=== PATIENT | female | born 1955 | race Hispanic/Latino ===

== ENCOUNTER 2024-11-20 18:21 | Emergency (ER) | payer OTHER, MEDICAID ==
--- NOTE | 2024-11-20 18:49 | ERN ---
General Chief Complaint: Weakness Stated Complaint: WEAKNESS Time Seen by MD: 18:34 Source: patient, family History of Present Illness Initial Comments In his is a 69-year-old female coming in complaining of generalized body weakness for one day. She states that she is a diabetic and has been feeling weak and had nauseousness x1 . No fever no chills Allergies: Coded Allergies: No Known Drug Allergies (Unverified Allergy, Unknown, 11/20/24) Past Medical History Past Medical History: Diabetes-Type II, High Cholesterol Past Surgical History: Other Surgical History Other: intestine sx ROS Dictation CONSTITUTIONAL: No chills, no fever, weakness, no diaphoresis, malaise. HEAD/FACE: No signs of trauma. EENT: No eye pain, no blurred vision, no tearing, no double vision, no ear pain, no ear discharge, no nose pain, no nasal congestion, no throat pain, no throat swelling, no mouth pain. RESPIRATORY: No cough, no orthopnea, no SOB, no stridor, no wheezing. CARDIOVASCULAR: No chest pain, no edema, no palpitations, no syncope. GASTROINTESTINAL/ABDOMINAL: No abdominal pain, no constipation, no diarrhea, no nausea, no vomiting. GENITOURINARY: No abnormal discharge, no dysuria, no frequent urination, no hematuria. No complaints of pain in the genitals. MUSCULOSKELETAL: No back pain, no gout, no joint pain, no joint swelling, no muscle pain, no muscle stiffness, no neck pain. INTEGUMENTARY: No change in color, no change in hair/nails, no dryness, no lesion, no lumps, no rash. NEUROLOGICAL/PSYCH: No anxiety, not depressed, no emotional problem, no headache, no numbness, no pre-existing deficit, no history of seizures, no trem ors, no weakness. HEMATOLOGIC/LYMPHATIC: Not anemic, no history of blood clots, no apparent bleeding, no bruising, glands not swollen. All Systems Negative, Except as Noted. Physical Exam Physical Exam Dictation VITAL SIGNS: Reviewed. GENERAL APPEARANCE: Alert, oriented x3, no acute distress, obese. HEAD AND FACE: Non-traumatic. EYES: PERRL, pink conjunctivas, eyelid no trauma, anterior chamber clear. EARS: Pinnas intact and no signs of trauma or erythema. Ear canals clear and no discharge. TMs no erythema. NOSE: No discharge, no bleeding. OROPHARYNX: Mouth normal, teeth no caries, tongue pink. Pharynx clear, no erythema. Tonsils no exudates, no abscesses noted. Mucous membrane moist. NECK: Supple, non-tender, no thyromegaly, no masses, no JVD, no bruits. BREAST: Deferred. CHEST: No tenderness, no crepitus, no paradoxical movement, no retractions. LUNGS: Clear, well-ventilated, symmetric, no rales, no wheezing, no rhonchi, no stridor, good breath sounds bilaterally. HEART: Regular rate, regular rhythm, no murmur, no gallops. VASCULAR: No peripheral edema. ABDOMEN: Soft, positive bowel sounds, nondistended, no guarding, nontender, no rebound, no masses no hepatomegaly, no splenomegaly, no Medina's sign, no hernias. RECTAL: Deferred. GENITAL: Deferred. NEUROLOGICAL: Normal speech, gross motor function intact, gross sensory f unction intact. MUSCULOSKELETAL: Neck nontender, full range of motion, back nontender, full range of motion. EXTREMITIES: Nontender, full range of motion. SKIN: Color pink, dry, no turgor, no rash, no lacerations, no abrasions, no contusions. LYMPHATICS: Deferred. Results Laboratory and Microbiology Lab and Micro Result Laboratory Tests Test 11/20/24 19:36 11/20/24 23:40 White Blood Count 6.9 K/uL (4.8-10.8) Red Blood Count 4.13 MIL/uL (4.00-5.50) Hemoglobin 12.7 g/dL (12.0-16.0) Hematocrit 37.8 % (36-48) Mean Corpuscular Volume 91.5 fL (79-99) Mean Corpuscular Hemoglobin 30.8 pg (27.0-33.0) Mean Corpuscular Hemoglobin Concent 33.6 g/dL (32.0-36.0) Red Cell Distribution Width 13.4 % (11.0-15.5) Platelet Count 184 K/uL (130-400) Mean Platelet Volume 10.9 fL (7.5-10.5) H Immature Granulocyte % (Auto) 0.3 % (0-1) Neutrophils (%) (Auto) 64.2 % (40.0-77.0) Lymphocytes (%) (Auto) 26.6 % (21.0-51.0) Monocytes (%) (Auto) 7.4 % (3.0-13.0) Eosinophils (%) (Auto) 1.2 % (0.0-8.0) Basophils (%) (Auto) 0.3 % (0.0-5.0) Neutrophils # (Auto) 4.4 K/uL (1.8-7.7) Lymphocytes # (Auto) 1.8 K/uL (1.0-4.8) Monocytes # (Auto) 0.5 K/uL (0.1-1.0) Eosinophils # (Auto) 0.08 K/uL (0.00-0.70) Basophils # (Auto) 0.02 K/uL (0.00-0.20) Absolute Immature Granulocyte (auto 0.02 K/uL (0-1) Nucleated Red Blood Cells 0.0 % (0.0-0.19) Sodium Level 140 mmol/L (136-145) Potassium Level 3.4 mmol/L (3.5-5.1) L Chloride Level 103 mmol/L (101-111) Carbon Dioxide Level 21 mmol/L (21-32) Blood Urea Nitrogen 16 mg/dL (7-18) Creatinine 0.8 mg/dL (0.5-1.0) Glomerular Filtration Rate Calc 79 mL/min (>90) Random Glucose 180 mg/dL (70-105) H Total Calcium 9.4 mg/dL (8.5-10.1) Total Creatine Kinase 57 U/L (21-232) Troponin I High Sensitivity 11 ng/L (4-50) Influenza Type A Antigen Negative For Type A Influenza Type B Antigen Negative For Type B SARS-CoV-2 Antigen (Rapid) PRESUMPTIVE NEGATIVE Labs Reviewed?: Yes EKG/XRAY/US/CT/MRI X-RAY Comment REASON: weakness ORDERING PHYSICIAN: LAMBERT DAWN MD PROCEDURE: CXR1VW - CHEST 1VW EXAM: CR Chest, 1 View. CLINICAL HISTORY: weakness COMPARISON: None provided. FINDINGS: LUNGS: There is no mass, infiltrate, or acute pulmonary abnormality. PLEURAL SPACES: No evidence of pleural effusion or pneumothorax. MEDIASTINUM: The cardiomediastinal silhouette is within normal limits. BONES: No acute osseous abnormality. IMPRESSION: No acute cardiopulmonary pathology is evident. /[place] DICTATED BY: ALEX ARSHAD MD DATE: 11/20/242211 ELECTRONICALLY SIGNED BY: ALEX ARSHAD MD DATE: 11/20/242211 MDM Differential diagnosis:, weakness, autonomic dysfunction related to diabetes, dehydration, viral syndrome, anemia Rationale: Tests considered and ordered secondary to shared decision making include: Previous outside records reviewed: Old ER visits. Risk of complication and/or morbidity or mortality of patient management: None Medications-Per medication reconciliation Need for hospitalization: Patient does not meet criteria for hospitalization. Need for emergency major/minor surgery: No There are no social concerns with this patient. Prescription drug management Prescriptions will include symptomatic care Patient's prior external medical records from other ER visits were reviewed by me as indicated. Prior testing and results from previous visits were reviewed. Prior tests were taken into account with medical decision making and resource utilization, independent historian/historians were used to obtain complete medical history. I independently interpreted the test that were performed, results were reviewed by me and considered findings on radiology if ordered. Medical management and examination interpretation discussions were had by me with other qualified healthcare professionals as indicated for the patient's care. 7:00 p.m. patient was signed out to me This is a very pleasant 69-year-old female who presented to the emergency room stating that she is a diabetic and she has felt weakness and fatigue for 1 day. She denied any fever chills or rigors. No nausea vomitings diarrhea. No vaginal bleeding or GI bleeding. No travel and heat. No chest pain pressure PND orthopnea. No shortness of breath. Recent surgeries. Although patient was initially a little tachycardic heart rates of 120 by the time I re-evaluated the patient Temperature 98.8 pulse 82 respirations 18 blood pressure 141/73 with a pulse oximetry of 98% on room air 9:00 p.m. labs reviewed CBC is with a normal limits BNP 7 showed a potassium of 3.4. Troponins are negative. Chest x-ray is unremarkable for any acute infiltrate. Was an inordinate delay and patient waiting in lobby due to lack of available space in the ER as it was extremely busy Gentle hydration was done and potassium repletion was done. To complete the workup I also requested flu and COVID swabs which came back negative. Patient wants to follow up with her primary care physician for further workup and she will be discharged to home. I updated her and her on all the basic tests that we did here today, I also considered possible autonomic dysfunction related to diabetes which can cause fatigue and slight tachycardia ED Course Orders Procedure Category Date Status Time Cbc With Differential LAB 11/20/24 Complete 18:49 Chest 1vw RAD 11/20/24 Resulted 18:49 12 Lead Ekg Tracing- EKG 11/20/24 Complete Technical 18:49 0.9%Nacl 1000ml (Ns PHA 11/20/24 Complete 1000ml) 19:00 Creatine Kinase, Total LAB 11/20/24 Complete 18:49 Troponin I High LAB 11/20/24 Complete Sensitivity 18:49 Urinalysis Profile LAB 11/20/24 Logged 18:49 Basic Metabolic Panel LAB 11/20/24 Complete 18:49 Influenza Type A & B, LAB 11/20/24 Complete Rapid 23:36 Covid19 (Sars Antigen LAB 11/20/24 Complete Rapid) 23:36 Current Medications Medications (Trade) Dose Ordered Sig/King Route PRN Reason Start Time Stop Time Status Last Admin Dose Admin Sodium Chloride 1,000 ml @ 0 mls/hr ONCE ONCE IV 11/20/24 19:00 11/20/24 19:01 DC 11/20/24 23:33 Vital Signs Date Time Temp Pulse Resp B/P (MAP) Pulse Ox O2 Delivery O2 Flow Rate FiO2 11/21/24 01:08 98.8 82 18 141/73 98 Room Air* 0 21 11/20/24 23:34 98.8 85 18 178/89 98 Room Air* 0 21 11/20/24 18:26 97.9 120 16 152/79 99 Room Air* 0 21 11/20/24 18:24 97.9 120 16 152/79 99 Room Air 0 DX & DISP Disposition: Discharge Decision to Admit Time: 00:24 Departure Impression: Primary Impression: Weakness Additional Impressions: Fatigue, Diabetes mellitus, Autonomic dysfunction with type 2 diabetes mellitus Condition: Stable Additional Instructions: Patient and the caregiver have been informed of all the diagnostic tests and the imaging conducted during the today's visit to the emergency room and has verbalized understanding of the results I have personally reviewed and interpreted all diagnostic exams performed here in the ER today as well as the vital signs documented by the nursing staff. The patient is now being discharged to home and should follow up with the primary care physician or the specialist as directed by the ER staff. I updated the patient and spouse that it is unclear as to reason for her weakness and fatigue. I instructed her to follow up with her primary care physician to get further blood work including B12 folate thyroid levels. LAMBERT DAWN MD Nov 20, 2024 18:49 GRACIE AGUILAR MD Nov 20, 2024 21:21
--- NOTE | 2024-11-20 18:57 | EKG ---
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
[2024-11-20 20:01] LABS: IMMATURE GRANULOCYTE ABSOLUTE 0.02 K/uL (0-1); NUCLEATED RED BLOOD CELLS 0.0 % (0.0-0.19); PLATELET COUNT (AUTO) 184 K/uL (130-400); RED BLOOD CELL COUNT(AUTO) 4.13 MIL/uL (4.00-5.50); RED CELL DISTRIBUTION WIDTH 13.4 % (11.0-15.5); WHITE BLOOD COUNT (AUTO) 6.9 K/uL (4.8-10.8)
[2024-11-20 20:20] LABS: CREATININE 0.8 mg/dL (0.5-1.0); GLOMERULAR FILTR. RATE CALC 79.0 mL/min (>90); GLUCOSE,RANDOM 180.0 mg/dL (70-105); SODIUM SERUM 140.0 mmol/L (136-145); UREA NITROGEN, BLOOD 16.0 mg/dL (7-18)
[2024-11-20 20:29] LABS: CREATINE KINASE, TOTAL 57.0 U/L (21-232)
--- NOTE | 2024-11-20 21:13 | HMCIMG ---
EXAM: CR Chest, 1 View. CLINICAL HISTORY: weakness COMPARISON: None provided. FINDINGS: LUNGS: There is no mass, infiltrate, or acute pulmonary abnormality. PLEURAL SPACES: No evidence of pleural effusion or pneumothorax. MEDIASTINUM: The cardiomediastinal silhouette is within normal limits. BONES: No acute osseous abnormality. IMPRESSION: No acute cardiopulmonary pathology is evident. /[place]
--- NOTE | 2024-11-20 23:20 | NUR ---
ASSUMED PT CARE
--- NOTE | 2024-11-20 23:20 | NUR ---
UA CUP GIVEN
[2024-11-20] MEDS: 0.9%NACL 1000ML 1,000 ML IV ONE (23:33)
[2024-11-21 00:15] LABS: COVID19 (SARS ANTIGEN RAPID) PRESUMPTIVE NEGATIVE (NEGATIVE); INFLUENZA TYPE A Negative For Type A (NEGATIVE); INFLUENZA TYPE B Negative For Type B (NEGATIVE)
[2024-11-21 01:08] VITALS: BP 141/73; PULSE 82; RESP 18; TEMP 98.8; O2SAT 98
== END 2024-11-21 01:20 | disposition home or self-care (01) ==
LOC: EDH 18:21
DX: E11.43 Type 2 diabetes mellitus with diabetic autonomic (poly)neuropathy (principal); G90.9 Disorder of the autonomic nervous system, unspecified; R53.83 Other fatigue; E78.00 Pure hypercholesterolemia, unspecified; Z98.890 Other specified postprocedural states; Z20.822 Contact with and (suspected) exposure to COVID-19
CPT/HCPCS: 36415; 71045; 80048; 82550; 84484; 85025; 87426; 87804; 93005; 99285